=== PATIENT | male | born 1960 | race Caucasian/White ===

== ENCOUNTER → 2024-05-09 11:04 | Outpatient (BNVA) | payer MEDICARE, SELFPAY | DX: M17.11 Unilateral primary osteoarthritis, right knee (principal) | CPT/HCPCS: 73562 ==

== ENCOUNTER → 2024-11-10 08:39 | Outpatient (BNVA) | payer SELFPAY | DX: Z01.89 Encounter for other specified special examinations (principal) | CPT/HCPCS: 80053; 80061; 83036; 85025 ==